=== PATIENT | female | born 1995 | race Caucasian/White ===

== ENCOUNTER 2019-08-12 23:11 | Emergency (ER) | payer OTHER ==
--- NOTE | 2019-08-13 00:25 | RADIOLOGY REPORT (SQ) ---
EXAM DESCRIPTION: XR FOOT 1-2 VIEWS COMPLETED DATE/TME: 08/12/2019 00:00 CLINICAL HISTORY: 23 years Female, bone pain COMPARISON: None. 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 Bones, joints, and soft tissues of the RIGHT XR FOOT 2 VIEWS appear otherwise unremarkable. IMPRESSION: No acute findings.
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
[2019-08-13] MEDS ORDERED: MORPHINE SULFATE 10 MG/ML INJ IM ONE (02:54)
[2019-08-13 03:35] VITALS: BP 101/55
== END 2019-08-13 03:37 | disposition home or self-care (01) ==
LOC: ER 23:11
DX: S90.31XA Contusion of right foot, initial encounter (principal); Y03.0XXA Assault by being hit or run over by motor vehicle, initial encounter; F17.200 Nicotine dependence, unspecified, uncomplicated; Z79.899 Other long term (current) drug therapy
CPT/HCPCS: 99284; 96372; 73620; J2270

== ENCOUNTER 2019-12-23 20:21 | Emergency (ER) | payer OTHER ==
--- NOTE | 2019-12-23 20:52 | ER Document Report ---
ED Medical Screen (RME) - General Chief Complaint: Flank Pain Stated Complaint: FLANK PAIN Time Seen by Provider: 12/23/19 20:48 Mode of Arrival: Ambulatory Information source: Patient Notes: 24-year-old female presents to ED for complaint of left flank pain with nausea no vomiting no fever no urinary symptoms. She states she thought the pain would go away and it has not so she is come to the emergency room to have it checked out. She states she has not had any history of kidney stones. We will get blood urine and CT abdomen pelvis. She states last menstrual period was last week. We will give a Toradol injection in the ED for her pain. I have greeted and performed a rapid initial assessment of this patient. A comprehensive ED assessment and evaluation of the patient, analysis of test results and completion of medical decision making process will be conducted by an additional ED providers. - Related Data Allergies/Adverse Reactions: No Known Allergies Allergy (Unverified 08/13/19 03:31) Physical Exam - Vital signs Vitals: Temp Pulse Resp BP Pulse Ox 98.3 F 108 H 20 136/86 H 100 12/23/19 20:36 12/23/19 20:36 12/23/19 20:36 12/23/19 20:36 12/23/19 20:36 Course - Vital Signs Vital signs: Temp Pulse Resp BP Pulse Ox 98.3 F 108 H 20 136/86 H 100 12/23/19 20:36 12/23/19 20:36 12/23/19 20:36 12/23/19 20:36 12/23/19 20:36
[2019-12-23] MEDS ORDERED: KETOROLAC TROMETHAMINE 60 MG/2 ML SDV IM ONE (20:53)
[2019-12-23 21:50] LABS: ABSOLUTE BASOPHILS # (AUTO) 0.1 10^3/uL (0.0-0.2); ABSOLUTE EOSINOPHILS # (AUTO) 0.2 10^3/uL (0.0-0.6); ABSOLUTE LYMPHOCYTES (AUTO) 1.4 10^3/uL (0.5-4.7); ABSOLUTE MONOCYTES (AUTO) 0.5 10^3/uL (0.1-1.4); ABSOLUTE NEUT (AUTO) 4.4 10^3/uL (1.7-8.2); BASOPHILS % (AUTO) 0.9 % (0-2); EOSINOPHILS % (AUTO) 2.4 % (0-6); HEMATOCRIT 43.6 % (36.0-47.0); HEMOGLOBIN 15.1 g/dL (12.0-15.5); LYMPHOCYTES % (AUTO) 21.3 % (13-45); MEAN CORPUSCULAR HEMOGLOBIN 31.9 pg (27.0-33.4); MEAN CORPUSCULAR HGB CONC 34.8 g/dL (32.0-36.0); MEAN CORPUSCULAR VOLUME 92 fl (80-97); MONOCYTES % (AUTO) 7.6 % (3-13); PLATELET COUNT 269 10^3/uL (150-450); RED BLOOD COUNT 4.75 10^6/uL (3.72-5.28); RED CELL DISTRIBUTION WIDTH 12.2 % (11.5-14.0); SEGMENTED NEUTROPHILS % (AUTO) 67.8 % (42-78); TOTAL CELLS COUNTED % (AUTO) 100 %; WHITE BLOOD COUNT 6.5 10^3/uL (4.0-10.5)
[2019-12-23 22:06] LABS: ALKALINE PHOSPHATASE 59 U/L (38-126); ANION GAP 8 (5-19); ASPARTATE AMINO TRANSFERASE 24 U/L (14-36); BILIRUBIN,DIRECT 0.2 mg/dL (0.0-0.4); BILIRUBIN,TOTAL 0.5 mg/dL (0.2-1.3); BLOOD UREA NITROGEN 15 mg/dL (7-20); CALCIUM 10.1 mg/dL (8.4-10.2); CARBON DIOXIDE 28 mmol/L (22-30); CHLORIDE 105 mmol/L (98-107); GLUCOSE 93 mg/dL (75-110); POTASSIUM 4.9 mmol/L (3.6-5.0); TOTAL PROTEIN 7.7 g/dL (6.3-8.2)
[2019-12-23 23:06] LABS: APPEARANCE,URINE CLEAR; BILIRUBIN,URINE NEGATIVE (NEGATIVE); COLOR,URINE STRAW; GLUCOSE, URINE NEGATIVE (NEGATIVE); KETONES,URINE NEGATIVE (NEGATIVE); LEUKOCYTE ESTERASE,URINE NEGATIVE (NEGATIVE); NITRITE,URINE NEGATIVE (NEGATIVE); PROTEIN,URINE NEGATIVE (NEGATIVE); URINE SPECIFIC GRAVITY 1.005; UROBILINOGEN,URINE NEGATIVE mg/dL (<2.0)
[2019-12-23 23:07] LABS: URINE AMPHETAMINES SCREEN NEGATIVE; URINE BARBITURATES SCREEN NEGATIVE; URINE BENZODIAZEPINES SCREEN NEGATIVE; URINE COCAINE SCREEN NEGATIVE; URINE MARIJUANA (THC) SCREEN NEGATIVE; URINE METHADONE SCREEN NEGATIVE; URINE PHENCYCLIDINE SCREEN NEGATIVE
--- NOTE | 2019-12-23 23:48 | ER Document Report ---
ED General - General Chief Complaint: Flank Pain Stated Complaint: FLANK PAIN Time Seen by Provider: 12/23/19 20:48 Primary Care Provider: [facility] [Provider Group] - Follow up as needed Mode of Arrival: Ambulatory Information source: Patient - HPI Notes: Patient is a 24-year-old female who presents with left abdominal and flank pain for the past 5 days. She describes the pain as pressure-like and a dull, stabbing pain. She reports nausea but denies vomiting, fever, diarrhea, constipation, dysuria, hematuria, vaginal bleeding and discharge. She endorses taking gas relief medication and Pepto-Bismol with no relief. 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 She currently smokes 3/4 pack of cigarettes daily. She denies alcohol or recreational drug use. - Related Data Allergies/Adverse Reactions: No Known Allergies Allergy (Unverified 08/13/19 03:31) Past Medical History - General Information source: Patient - Social History Smoking Status: Current Every Day Smoker Cigarette use (# per day): Yes - 3/4 pack daily Chew tobacco use (# tins/day): No Frequency of alcohol use: None Drug Abuse: None Family History: Reviewed & Not Pertinent Review of Systems - Review of Systems Constitutional: No symptoms reported EENT: No symptoms reported Cardiovascular: No symptoms reported Respiratory: No symptoms reported Gastrointestinal: See HPI Genitourinary: No symptoms reported Female Genitourinary: No symptoms reported Musculoskeletal: No symptoms reported Skin: No symptoms reported Hematologic/Lymphatic: No symptoms reported Neurological/Psychological: No symptoms reported Physical Exam - Vital signs Vitals: Temp Pulse Resp BP Pulse Ox 98.3 F 108 H 20 136/86 H 100 12/23/19 20:36 12/23/19 20:36 12/23/19 20:36 12/23/19 20:36 12/23/19 20:36 - Notes Notes: PHYSICAL EXAMINATION: VITALS: Vitals reviewed and within normal limits. GENERAL: Well-appearing, well-nourished and in no acute distress. HEAD: Atraumatic, normocephalic. EYES: Pupils equal round and reactive to light, extraocular movements intact, sclera anicteric, conjunctiva are normal. ENT: nares patent, oropharynx clear without exudates. Moist mucous membranes. NECK: Normal range of motion, supple without lymphadenopathy. LUNGS: Breath sounds clear to auscultation bilaterally and equal. No wheezes rales or rhonchi. HEART: Regular rate and rhythm without murmurs. ABDOMEN: Soft abdomen with normoactive bowel sounds. Tenderness to the LUQ. No guarding, no rebound. No masses appreciated. EXTREMITIES: Normal range of motion, no pitting or edema. No cyanosis. NEUROLOGICAL: No focal neurological deficits. Moves all extremities spontaneously and on command. PSYCH: Normal mood, normal affect. SKIN: Warm, Dry, normal turgor, no rashes or lesions noted. Course - Re-evaluation Re-evalutation: Patient is a 24-year-old female who presents with left abdominal and flank pain for the past 5 days. On exam, left upper quadrant tenderness. Vital signs are within normal limits. Lab work is unremarkable. CT abdomen/pelvis shows free pelvic fluid that is likely physiological as well as moderate stool in the colon. Results discussed with patient. Work-up consistent with constipation. Patient advised to take MiraLAX or mag citrate for relief as well as drink plenty of fluids and a high-fiber diet. Return precautions given, patient will be discharged home. - Vital Signs Vital signs: Temp Pulse Resp BP Pulse Ox 98.2 F 97 15 118/75 100 12/24/19 01:01 12/24/19 01:01 12/24/19 01:01 12/24/19 01:01 12/24/19 01:01 - Laboratory Result Diagrams: 12/23/19 21:27 12/23/19 21:27 Discharge - Discharge Clinical Impression: Abdominal pain Qualifiers: Abdominal location: unspecified location Qualified Code(s): R10.9 - Unspecified abdominal pain Constipation Qualifiers: Constipation type: unspecified constipation type Qualified Code(s): K59.00 - Constipation, unspecified Condition: Stable Disposition: HOME-SNF (ED ONLY) Additional Instructions: Constipation Constipation is a common problem. It is especially likely as you get older. Constipation is a common cause of abdominal pain, but sometimes causes n o symptoms at all. Causes of constipation include certain medications, dehydration, diets, inactivity, and low-fiber intake. Rarely, it can be a symptom of underlying disease. The physician has evaluated you for this. Avoid constipation by eating a diet high in fiber, fruits, and vegetables. Drink plenty of liquids. Get regular exercise. If possible, avoid constipating medicines like narcotic pain medication. Some vitamin tablets can cause constipation. Stool softeners may be needed for difficult cases. An excellent stool softener is Konsyl which is available at [employer], and [employer] drug store. Just add a teaspoon to a glass of pineapple or orange juice daily or twice a day if needed. Laxatives are useful for occasional constipation. You should use them only when necessary. Too-frequent use can make your bowels dependent on them. Some over the counter laxatives available without prescription are: Milk of Magnesia, 1-2 tablespoons twice a day Dulcolax, 5 mg pill or 10 mg suppository. Citrate of Magnesia, 4-5 ounces a day for a day or two For acute constipation, Fleet's Enemas and Dulcolax suppositories are helpful. Chronic, computer terminal operator use of laxatives or enemas is not a good idea. Your bowel may become dependant on them. You do not need to have a bowel movement every day. Many people do fine with a bowel movement every three or four days. You should call your doctor or return for re-evaluation if you pass blood in the stool, or if you develop fever or increasing abdominal pain. Referrals: [facility] [Provider Group] - Follow up as needed
--- NOTE | 2019-12-24 | RADIOLOGY REPORT (SQ) ---
EXAM DESCRIPTION: CT ABDOMEN PELVIS WITHOUT IV CONTRAST COMPLETED DATE/TME: 12/23/2019 20:53 CLINICAL HISTORY: 24 years Female Flank pain with nausea COMPARISON: None. TECHNIQUE: Contiguous axial images obtained through the abdomen and pelvis without IV contrast. Reformatted images obtained. This exam was performed according to our department optimization program which includes automated exposure control, adjustment of the mA and/or kv according to patient size and/or use of iterative reconstruction technique. FINDINGS: The lung bases are clear. Liver is mildly enlarged. No focal lesions noted. The spleen and pancreas appear unremarkable. No adrenal masses. The kidneys appear unremarkable. No hydronephrosis or definite ureteral calculi. The gallbladder is visualized. No aneurysmal dilatation of the aorta. No bowel obstruction. Unremarkable appendix. Small amount of fluid in the pelvis likely physiologic in a patient of this age. Scattered small mesenteric lymph nodes. IMPRESSION: Free pelvic fluid likely physiologic No evidence of acute process
[2019-12-24 01:01] VITALS: BP 118/75
== END 2019-12-24 01:01 ==
LOC: ER 20:21
DX: K59.00 Constipation, unspecified (principal); R10.9 Unspecified abdominal pain; R10.812 Left upper quadrant abdominal tenderness; R11.0 Nausea; F17.210 Nicotine dependence, cigarettes, uncomplicated
CPT/HCPCS: 99285; 96372; 36415; 85025; 81025; 80053; 81001; 80307; 74176; J1885